=== PATIENT | male | born 1995 | race Caucasian/White ===

== ENCOUNTER 2016-09-09 17:08 | Outpatient (CLI) | payer OTHER ==
--- NOTE | 2016-09-09 17:58 | DIAGNOSTIC IMAGING REPORT ---
PROCEDURE: XR THORACIC SPINE 3 VIEWS INDICATION: LOW BACK PAIN TECHNIQUE: Three views. COMPARISON: None. FINDINGS: Osseous structures and disc spaces are normal. No evidence of an acute process or fracture. IMPRESSION: 1. Negative thoracic spine.
--- NOTE | 2016-09-09 18:00 | DIAGNOSTIC IMAGING REPORT ---
PROCEDURE: XR LUMBAR SPINE 2 OR 3 VIEWS INDICATION: LOW BACK PAIN TECHNIQUE: Three views. COMPARISON: None. FINDINGS: Grade 1 spondylolisthesis with bilateral pars defects at L5-S1. IMPRESSION: 1. Bilateral pars defects and a grade 1 spondylolisthesis L5-S1
== END 2016-09-09 23:00 ==
LOC: XR SRH 17:08
DX: M43.17 Spondylolisthesis, lumbosacral region (principal); M54.5 Low back pain